=== PATIENT | female | born 1965 | race Caucasian/White ===

== ENCOUNTER 2017-01-31 15:16 | Emergency (ER) | payer OTHER ==
[~2017-01-31 15:16] MED LIST: ISOVUE-370 76%-LOCM 1 ML ONE
[2017-01-31 16:58] LABS: #Basophils 0.1 thou/uL (0.0-0.2); #Eosinphils 0.1 thou/uL (0.0-0.7); #Lymphocytes 1.4 thou/uL (1.20-3.40); #Monocytes 0.8 thou/uL (0.11-0.59); #Neutrophils 8.7 thou/uL (1.40-6.50); %Basophils 0.6 % (0.0-1.0); %Eosinophils 0.8 % (0.0-10.0); %Lymphocytes 12.4 % (21.0-51.0); Hematocrit 45.1 % (36.0-47.0); Mean Platelet Volume 7.6 fL (7.4-10.4); Red Blood Cell (RBC) Count 4.74 mill/uL (4.20-5.40)
[2017-01-31 17:19] LABS: ALT (SGPT) 52 U/L (8-55); AST (SGOT) 34 U/L (5-34); Alkaline Phosphatase 169 U/L (40-150); Anion Gap 10 mmol/L (10-20); BUN (Urea Nitrogen) 10 mg/dL (7.0-18.7); Bilirubin, Total 0.5 mg/dL (0.2-1.2); Calc. Creatinine Clearance 0 mL/min (70-130); Calcium 9.8 mg/dL (7.8-10.44); Carbon Dioxide 28 mmol/L (22-29); Chloride 101 mmol/L (98-107); Estimated GFR-MDRD 89; Globulin 4.1 g/dL (2.4-3.5); Lipase 21 U/L (8-78)
[2017-01-31 18:13] LABS: Bilirubin Negative (Negative); Blood, Urine Negative (Negative); Glucose, Urine (Dipstick) Negative (Negative); Ketone, Urine Negative (Negative); Nitrite Negative (Negative); Protein, Urine (Dipstick) Negative (Neg-Trace)
[2017-01-31] MEDS ORDERED: traMADol HCl 50 MG TAB ONE (18:39)
--- NOTE | 2017-01-31 20:58 | CT ---
ABDOMEN AND PELVIS CT WITH CONTRAST 01/31/17 INDICATION: Abdominal pain, hypoglycemia. FINDINGS: No acute abnormalities at the imaged lung bases. There is mild linear density that indicates volume l oss and/or scar. Partially imaged ground glass punctate density of the region of right middle lobe is incompletely assessed. Prior cholecystectomy. Prominent volume of the spleen. No peripancreatic infl ammation. There is a fat containing paraumbilical hernia which contains mesenteric vasculature withou t significant inflammation. No acute abnormality of the liver. There is a lobular morphology of the k idneys bilaterally. No hydronephrosis involving either kidney. Slight parenchymal defect of the later al margin of the right kidney suggests an area of scar. There is moderate distention of the unopacifi ed urinary bladder. Focus of nonspecific inflammation involves the ventral abdominal fat at the low a bdomen. This could relate to an area of edema, hematoma or possibly cellulitis. Correlate with physic al exam. No free air or portal venous gas. There is scattered vascular disease. The bowel is incomple tely assessed without enteric contrast administration. Metallic clip at the right lower quadrant elpidio cent the cecum could relate to history of prior bowel surgery. Correlate with history. No acute osseo us pathology. IMPRESSION: 1. Fat containing paraumbilical hernia. 2. Fat stranding/inflammation of the ventral abdominal subcutaneous region and skin surface at t he low abdomen to the right of midline. Correlate with physical exam. 3. Additional findings are detailed above. POS: [facility]
== END 2017-01-31 18:44 | disposition home or self-care (01) ==
LOC: ERS 15:16
DX: E11.649 Type 2 diabetes mellitus with hypoglycemia without coma (principal); E78.5 Hyperlipidemia, unspecified; I10 Essential (primary) hypertension; J44.9 Chronic obstructive pulmonary disease, unspecified; F41.9 Anxiety disorder, unspecified; F32.9 Major depressive disorder, single episode, unspecified; F17.210 Nicotine dependence, cigarettes, uncomplicated; Z79.899 Other long term (current) drug therapy; Z79.4 Long term (current) use of insulin
CPT/HCPCS: 36415; 36416; 74177; 80053; 81003; 83690; 85025; 96360; 96361; 99406